=== PATIENT | female | born 1945 | race Caucasian/White ===

== ENCOUNTER 2018-02-18 13:46 | Emergency (ER) | payer OTHER, MEDICAID ==
[~2018-02-18] VITALS: Ht 167.6 cm; Wt 71.0 kg
[2018-02-18] MEDS ORDERED: LOSA25TA3 PO (13:57)
[2018-02-18] MEDS ORDERED: METO-396 PO (13:57)
[2018-02-18] MEDS ORDERED: ACETAMINOPHEN 325MG TABLET PO STA (15:23)
[2018-02-18 18:23] VITALS: BP 122/82
== END 2018-02-18 18:26 | disposition home or self-care (01) ==
LOC: ER 14:31
DX: S00.93XA Contusion of unspecified part of head, initial encounter (principal); S50.02XA Contusion of left elbow, initial encounter; S16.1XXA Strain of muscle, fascia and tendon at neck level, initial encounter; M25.511 Pain in right shoulder; M25.572 Pain in left ankle and joints of left foot; I10 Essential (primary) hypertension; Z90.49 Acquired absence of other specified parts of digestive tract; W01.198A Fall on same level from slipping, tripping and stumbling with subsequent striking against other object, initial encounter; Y93.89 Activity, other specified; Y92.520 Airport as the place of occurrence of the external cause
CPT/HCPCS: 70450; 72070; 72125; 73080; 73630; 99284